=== PATIENT | female | born 1965 | race Caucasian/White ===

== ENCOUNTER 2020-06-12 22:37 | Emergency (ER) | payer OTHER ==
[~2020-06-12] VITALS: Ht 154.9 cm; Wt 54.9 kg
[2020-06-12] MEDS ORDERED: LISI20 PO (22:50)
[2020-06-12] MEDS ORDERED: SERT50 PO (22:50)
[2020-06-12] MEDS ORDERED: OMEP20ER PO (22:51)
[2020-06-12] MEDS ORDERED: Percocet 10-321 EACH PO (22:51)
[2020-06-12] MEDS ORDERED: IBUP600 PO (23:06)
== END 2020-06-13 02:10 | disposition home or self-care (01) ==
LOC: ER 22:37
DX: T40.2X1A Poisoning by other opioids, accidental (unintentional), initial encounter (principal); G89.29 Other chronic pain; Z88.0 Allergy status to penicillin; Z88.5 Allergy status to narcotic agent; Z88.1 Allergy status to other antibiotic agents; Z79.899 Other long term (current) drug therapy
CPT/HCPCS: 51702; 99284